=== PATIENT | male | born 1950 | race Caucasian/White ===

== ENCOUNTER 2017-10-11 11:42 | Emergency (ER) | payer MEDICARE ==
[~2017-10-11] VITALS: Ht 172.7 cm; Wt 64.1 kg
[2017-10-11 11:44] VITALS: BP 183/92
[2017-10-11] MEDS ORDERED: ZOLP5TAB PO (12:36)
== END 2017-10-11 12:51 | disposition home or self-care (01) ==
LOC: ED 12:45
DX: H53.132 Sudden visual loss, left eye (principal)
CPT/HCPCS: 99282

== ENCOUNTER → 2018-04-13 | Outpatient (CLI) | payer MEDICARE ==
[~2018-04-13] MED LIST: ZOLP5TAB PO
== END | disposition home or self-care (01) ==
LOC: CVU 09:57
PROVIDERS: ATTEND Internal Medicine Cardiovascular Disease
DX: I34.0 Nonrheumatic mitral (valve) insufficiency (principal); I10 Essential (primary) hypertension
CPT/HCPCS: 93017; 93306; 93350

== ENCOUNTER 2020-05-15 08:09 | Outpatient (CLI) | payer MEDICARE ==
[2020-05-15] MEDS ORDERED: FENTANYL PF 100 MCG/2ML ONE ×2 (08:41→09:07)
[2020-05-15] MEDS ORDERED: MIDAZOLAM 1 MG/ML, 5ML ONE ×2 (08:41→09:07)
== END 2020-05-15 23:59 | disposition home or self-care (01) ==
LOC: RAD 08:09
PROVIDERS: ATTEND Orthopaedic Surgery
DX: M25.512 Pain in left shoulder (principal); M75.42 Impingement syndrome of left shoulder; M75.32 Calcific tendinitis of left shoulder; M19.012 Primary osteoarthritis, left shoulder; I10 Essential (primary) hypertension; Z79.891 Long term (current) use of opiate analgesic; Z79.899 Other long term (current) drug therapy; Z88.2 Allergy status to sulfonamides; Z88.5 Allergy status to narcotic agent
CPT/HCPCS: 73221; 99156; 99157; J2250; J3010

== ENCOUNTER 2020-05-31 11:18 | Emergency (ER) | payer MEDICARE ==
[~2020-05-31] VITALS: Ht 172.7 cm; Wt 64.5 kg
[2020-05-31 12:00] LABS: BASOPHILS % (AUTO) 2 % (0-1); EOSINOPHILS % (AUTO) 1 % (1-7); LYMPHOCYTES % (AUTO) 26 % (22-44); MEAN CORPUSCULAR HEMOGLOBIN 30.1 pg (27.5-34.5); MEAN CORPUSCULAR HGB CONC 34.1 g/dL (33.2-36.2); MEAN PLATELET VOLUME 8.9 fL (7.4-10.4); MONOCYTES % (AUTO) 11 % (2-9); NEUTROPHILS % (AUTO) 60 % (42-75); PLATELET COUNT 241 x10^3/uL (130-400); RED BLOOD COUNT 5.37 x10^6/uL (4.38-5.82); RED CELL DISTRIBUTION WIDTH 12.6 % (9.4-14.8)
[2020-05-31 12:02] LABS: MD NO
[2020-05-31 12:07] LABS: MICROSCOPIC INDICATED
[2020-05-31 12:13] LABS: ALANINE AMINOTRANSFERASE 26 U/L (12-78); ALBUMIN 4.1 g/dL (3.4-5.0); ANION GAP 5 mmol/L (5-15); CALCIUM 9.2 mg/dL (8.5-10.1); CHLORIDE 106 mmol/L (98-107); CREATININE 1.19 mg/dL (0.7-1.3)
[2020-05-31 12:15] LABS: ALKALINE PHOSPHATASE 53 U/L (45-117); BILIRUBIN,TOTAL 0.6 mg/dL (0.2-1.0); TOTAL PROTEIN 7.6 g/dL (6.4-8.2)
[2020-05-31] MEDS ORDERED: LORazepam 1MG TABLET ONE (13:04)
[2020-05-31] MEDS ORDERED: LORazepam 1MG TABLET PO ONE (13:30)
[2020-05-31] MEDS ORDERED: HYDROCHLOROTHIAZIDE PO (15:24)
[2020-05-31] MEDS ORDERED: PROPOFOL 10 MG/ML, 20ML ONE (16:40)
[2020-05-31] MEDS ORDERED: ROCURONIUM 10MG/ML,5ML ONE (16:40)
[2020-05-31] MEDS ORDERED: SUGAMMADEX 200 MG/2 ML IVPush ONE (16:40)
[2020-05-31] MEDS ORDERED: CEFAZOLIN 1,000 MG ONE (16:40)
[2020-05-31 17:00] VITALS: BP 162/89
[2020-05-31] MEDS ORDERED: OMNIPAQUE 350 MG/ML, 50 ML BOTTLE ONE (17:34)
[2020-05-31] MEDS ORDERED: MIDAZOLAM 1 MG/ML, 2ML ONE (18:21)
[2020-05-31] MEDS ORDERED: KETOROLAC 30 MG/1 ML IV PRN (18:30)
[2020-05-31] MEDS ORDERED: hydrALAzine 20 MG/ML, 1ML IV PRN (18:30)
[2020-05-31] MEDS ORDERED: DIAZEPAM 5 MG/ML, 2ML IV PRN ×2 (18:30)
[2020-05-31] MEDS ORDERED: LABETALOL 5MG/ML, 20ML IV PRN (18:30)
[2020-05-31] MEDS ORDERED: ONDANSETRON 2MG/ML, 2ML IVPush PRN (18:30)
[2020-05-31] MEDS ORDERED: ALBUTEROL SULFATE 2.5 MG/3 ML NPPB PRN (18:30)
[2020-05-31] MEDS ORDERED: PROMETHAZINE 25 MG/ML, 1ML IV PRN (18:30)
[2020-05-31] MEDS ORDERED: MEPERIDINE/PF 25MG/0.5ML IVPush PRN (18:30)
[2020-05-31] MEDS ORDERED: METOCLOPRAMIDE 5 MG/ML, 2ML IV PRN (18:30)
[2020-05-31] MEDS ORDERED: FENTANYL PF 100 MCG/2ML ONE ×3 (19:34→19:58)
[2020-05-31] MEDS ORDERED: OXYcodone 5 MG/5 ML ORAL.SOL UDC ONE ×2 (19:34→19:57)
[2020-05-31] MEDS: FENTANYL PF 100 MCG/2ML IV PRN ×4 (19:37→20:22)
[2020-05-31] MEDS ORDERED: HYDROmorphone 1 MG/ML, 1ML INJ ONE (19:48)
[2020-05-31] MEDS: OXYcodone 5 MG/5 ML ORAL.SOL UDC PO PRN ×2 (19:50→20:03)
[2020-05-31] MEDS: HYDROmorphone 1 MG/ML, 1ML INJ IV PRN ×2 (19:52→20:42)
[2020-05-31] MEDS ORDERED: LABETALOL 5MG/ML, 20ML ONE (20:39)
[2020-05-31] MEDS ORDERED: KETOROLAC 30 MG/1 ML ONE (22:45)
== END 2020-05-31 23:40 | disposition home or self-care (01) ==
LOC: ED 14:24
DX: N13.2 Hydronephrosis with renal and ureteral calculous obstruction (principal); Z20.822 Contact with and (suspected) exposure to COVID-19; R31.9 Hematuria, unspecified; R10.9 Unspecified abdominal pain; R30.0 Dysuria; I10 Essential (primary) hypertension; Z87.891 Personal history of nicotine dependence
CPT/HCPCS: 36415; 52317; 52356; 74018; 74176; 76000; 80053; 81001; 82360; 85025; 87086; 87635; 88300; 96374; 96375; 99285; C1769; C2617; J0690; J1170; J1885; J2250; J2704; J3010; Q9967

== ENCOUNTER 2020-06-02 01:55 | Emergency (ER) | payer MEDICARE ==
[~2020-06-02] VITALS: Ht 172.7 cm; Wt 64.0 kg
[~2020-06-02 01:55] MED LIST changes: +HYDROCHLOROTHIAZIDE PO
--- NOTE | 2020-06-02 02:16 | NUR ---
TASK RN: BLADDER SCAN REVEALS APPROX 60ML
--- NOTE | 2020-06-02 02:48 | NUR ---
EDUCATED PT ON MORELAND CARE, FLUSHED MORELAND WITH 30 ML STERILE WATER AND GOT 30 ML BACK OUT. PT STATES FEELING BETTER AFTER INTERVENTION, ERP UPDATED, WILL PROVIDE PT WITH LEG BAG TO TAKE HOME. PT HAS APPOINTMENT THURSDAY TO REMOVE MORELAND.
[2020-06-02] MEDS ORDERED: ONDANSETRON 2MG/ML, 2ML ONE (02:54)
[2020-06-02 02:55] VITALS: BP 159/89
--- NOTE | 2020-06-02 03:14 | NUR ---
LEG BAG PLACED, PT EDUCATED AND UNDERSTANDING OF INSTRUCTIONS
== END 2020-06-02 03:37 | disposition home or self-care (01) ==
LOC: ED 03:15
DX: T83.018A Breakdown (mechanical) of other urinary catheter, initial encounter (principal); R10.9 Unspecified abdominal pain; I10 Essential (primary) hypertension; Z87.891 Personal history of nicotine dependence
CPT/HCPCS: 99284